=== PATIENT | male | born 1945 | race Two or more races ===

== ENCOUNTER 2022-06-13 15:17 | Emergency (ER) | payer OTHER ==
[~2022-06-13] VITALS: Ht 160 cm; Wt 96.0 kg
[2022-06-13 16:47] LABS: HEMATOCRIT. 29.1 % (42.0-52.0); HEMOGLOBIN. 9.5 g/dL (14.0-18.0); MEAN CORPUSCULAR HEMOGLOBIN 25.3 pg (28.0-32.0); MEAN CORPUSCULAR VOLUME 77.7 fL (80.0-94.0); MEAN PLATELET VOLUME 8.7 fl (7.4-10.4); PLATELET 100 x1000/uL (130-400); RED BLOOD CELL COUNT 3.74 mill/uL (4.7-6.1); RED CELL DISTRIBUTION WIDTH 19.2 % (11.6-14.6)
[2022-06-13 16:55] LABS: CHLORIDE 113 mEq/L (98-107)
[2022-06-13 17:29] VITALS: BP 109/48
[2022-06-13 18:23] LABS: PLATELET ESTIMATE DECREASED
== END 2022-06-13 17:33 | disposition left against medical advice (07) ==
LOC: ER 16:33
DX: R05.9 Cough, unspecified (principal); E11.9 Type 2 diabetes mellitus without complications
CPT/HCPCS: 36415; 71045; 80053; 83605; 85025; 99284